=== PATIENT | female | born 1970 | race Caucasian/White ===

== ENCOUNTER 2017-10-08 10:20 | Emergency (ER) | payer BC ==
[2017-10-08 11:08] LABS: Absolute Lymphocytes (CBC) 1.7 K/uL (0.7-4.9); Absolute Monocytes 0.7 K/uL (0.1-1.3); Absolute Neutrophil 2.7 K/uL (1.8-8.0); Basophils % 0.8 % (0-1.3); Eosinophils % 2.1 % (0-4.4); Hematocrit 35.4 % (36.0-45.0); Lymphocytes % 31.9 % (15.3-44.8); MPV 7.7 fL (7.6-11.3); Monocytes % 13.6 % (3.3-12.3); RBC Red Blood Cell Count 4.11 M/uL (3.86-4.86)
[2017-10-08 11:18] LABS: Bicarbonate 27 mEq/L (21-31); Glucose Level 94 mg/dL (65-120); Potassium 3.6 mEq/L (3.6-5.0); Sodium Level 136 mEq/L (135-145)
[2017-10-08 11:19] LABS: Protime INR 0.97
[2017-10-08 11:24] LABS: ALT/SGPT 15 IU/L (10-60); AST/SGOT 18 IU/L (10-42); Albumin 3.5 g/dL (3.2-5.5); Alkaline Phosphatase 65 IU/L (42-121); BUN Blood Urea Nitrogen 20 mg/dL (6-20); Bilirubin Direct < 0.1 mg/dL (0-0.2); Bilirubin Total 0.3 mg/dL (0.3-1.2); Glomerular Filtration Rate > 90 mL/min (=/>90); Magnesium 1.8 mg/dL (1.8-2.5); Protein, Total 6.8 g/dL (6.0-8.3)
--- NOTE | 2017-10-08 11:25 | RAD REPORT ---
EXAM DESCRIPTION: Rachell Single View10/08/2017 11:18 am CLINICAL HISTORY: Chest pain COMPARISON: November 2016 FINDINGS: The lungs appear clear of acute infiltrate. The heart is normal size IMPRESSION: No acute abnormalities displayed
--- NOTE | 2017-10-08 12:42 | EKG ---
Test Date: 2017-10-08 Test Time: 10:35:57 Senior Marketing Data Analyst: ALEJANDRO MEASUREMENT RESULTS: Intervals: Rate: 92 NH: 128 QRSD: 76 QT: 366 QTc: 452 [place]: P: 49 NH: 128 QRS: 54 T: 47 INTERPRETIVE STATEMENTS: Normal sinus rhythm Normal ECG Compared to ECG 12/13/2016 13:37:56 No significant changes Electronically Signed On 10-08-17 12:42:00 CDT by Asher Slaughter
[2017-10-08 14:11] LABS: Urine Blood 2+ (NEG); Urine Glucose NEGATIVE (NEG); Urine Protein NEGATIVE (NEG); Urine pH 6.5 (5.0-7.0)
--- NOTE | 2017-10-08 15:19 | ER ---
Nurse's Notes [facility] Name: Mary Carmen Dodd Age: 46 yrs Sex: Female : 1970 Arrival Date: 10/08/2017 Time: 10:23 Bed 15 Private MD: Diagnosis: Chest pain, unspecified Presentation: 10/08 10:30 Presenting complaint: Patient states: chest pain since yesterday. Transition of care: tl3 patient was not received from another setting of care. Onset of symptoms. 10:30 Method Of Arrival: Ambulatory tl3 10:30 Acuity: DANIEL 3 tl3 Triage Assessment: 10:32 General: Appears distressed, uncomfortable, well groomed, well developed, well tl3 nourished, Behavior is calm, cooperative, appropriate for age. 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 Patient has never been vaccinated. - Social history:: Smoking status: Patient/guardian denies using tobacco. Screenin:51 Abuse screen: Denies threats or abuse. Denies injuries from another. Nutritional jl7 screening: No deficits noted. Tuberculosis screening: No symptoms or risk factors identified. Fall Risk IV access (20 points). Total Cunningham Fall Scale indicates No Risk (0-24 pts). Assessment: 10:51 General: Appears in no apparent distress. uncomfortable, Behavior is calm, cooperative, jtb appropriate for age. Pain: Complains of pain in mid-sternal area and left lateral posterior chest and back of the neck Pain does not radiate. Pain currently is 6 out of 10 on a pain scale. at worst was 6 out of 10 on a pain scale. Quality of pain is described as pressure, Pain began 1 day ago. Is intermittent. Neuro: Level of Consciousness is awake, alert, obeys commands, Oriented to person, place, time, situation. Cardiovascular: Heart tones S1 S2 present Patient's skin is warm and dry. Respiratory: Airway is patent Respiratory effort is even, unlabored, Respiratory pattern is regular, symmetrical, Breath sounds are clear bilaterally. GI: No signs and/or symptoms were reported involving the gastrointestinal system. : No signs and/or symptoms were reported regarding the genitourinary system. EENT: No signs and/or symptoms were reported regarding the EENT system. Derm: Skin is intact, Skin is pink, warm \\T\\ dry. Musculoskeletal: No signs and/or symptoms reported regarding the musculoskeletal system. 11:39 Reassessment: Patient and/or family updated on plan of care and expected duration. Pain jtb level reassessed. Patient is alert, oriented x 3, equal unlabored respirations, skin warm/dry/pink. Pt states "The pain just come and goes. Right now I am not feeling any pain." Patient denies pain at this time. Patient states feeling better. 12:44 Reassessment: No changes from previously documented assessment. Patient and/or family jtb updated on plan of care and expected duration. Pain level reassessed. Patient is alert, oriented x 3, equal unlabored respirations, skin warm/dry/pink. 13:48 Reassessment: No changes from previously documented assessment. Patient and/or family jtb updated on plan of care and expected duration. Pain level reassessed. Patient is alert, oriented x 3, equal unlabored respirations, skin warm/dry/pink. 14:40 Reassessment: No changes from previously documented assessment. Patient and/or family jtb updated on plan of care and expected duration. Pain level reassessed. Patient is alert, oriented x 3, equal unlabored respirations, skin warm/dry/pink. 15:43 Reassessment: Patient and/or family updated on plan of care and expected duration. Pain jtb level reassessed. Patient is alert, oriented x 3, equal unlabored respirations, skin warm/dry/pink. Patient states feeling better. Reassessment:. Vital Signs: 10:29 BP 125 / 95; Pulse 80; Resp 18; Temp 98.4(O); Pulse Ox 100% on R/A; Weight 77.11 kg; tl3 Height 5 ft. (152.40 cm); 11:41 BP 111 / 80; Pulse 81; Resp 16 S; Pulse Ox 97% on R/A; Pain 0/10; jtb 12:44 BP 114 / 76; Pulse 71; Resp 16 S; Pulse Ox 99% on R/A; Pain 0/10; jtb 13:45 BP 121 / 79; Pulse 74; Resp 16 S; Pulse Ox 99% on R/A; Pain 0/10; jl7 14:40 BP 108 / 77; Pulse 78; Resp 16 S; Pulse Ox 99% on R/A; jtb 15:40 BP 113 / 73; Pulse 75; Resp 16 S; Pulse Ox 100% on R/A; Pain 3/10; jtb 10:29 Body Mass Index 33.20 (77.11 kg, 152.40 cm) tl3 ED Course: 10:23 Patient arrived in ED. sb2 10:31 Triage completed. tl3 10:34 Sohail Thorpe PA is PHCP. jr8 10:34 Lorna Agarwal MD is Attending Physician. jr8 10:50 Adela Le, VICTORINO is Primary Nurse. jl7 10:51 Patient has correct armband on for positive identification. Placed in gown. Bed in low jl7 position. Call light in reach. Side rails up X 1. site monitor on. Pulse ox on. NIBP on. Warm blanket given. 10:51 Initial lab(s) drawn, by ED staff, sent to lab. Inserted saline lock: 22 gauge in right jl7 antecubital area, using aseptic technique. Blood collected. Inserted by DELFINO Gonzalez Tech. Patient maintains SpO2 saturation greater than 95% on room air. 10:52 Arm band placed on right wrist. jl7 11:15 X-ray completed. Portable x-ray completed in exam room. Patient tolerated procedure ml well. 15:56 No provider procedures requiring assistance completed. IV discontinued, intact, jtb bleeding controlled. Administered Medications: No medications were administered Outcome: 15:18 Discharge ordered by . jr8 15:56 Discharged to home ambulatory. jtb 15:56 Condition: stable 15:56 Discharge instructions given to patient, Instructed on discharge instructions, follow up and referral plans. no drinking with medication, medication usage, Demonstrated understanding of instructions, follow-up care, medications, Prescriptions given X 2. 15:56 Attestation : I agree with everything documented by Enrique Anderson, Student Nurse. jl7 15:57 Patient left the ED. jtb Signatures: Pinky Meier ml Sohail Thorpe PA PA jr8 Adela Le, RN RN jl7 Mandy Gutierrez sb2 Karen Vergara, VICTORINO RN tl3 Enrique Anderson jtb
--- NOTE | 2017-10-08 15:19 | EDPHYS ---
Physician Documentation [facility] Name: Mary Carmen Dodd Age: 46 yrs Sex: Female : 1970 Arrival Date: 10/08/2017 Time: 10:23 Bed 15 Private MD: ED Physician Lorna Agarwal HPI: 10/08 11:28 This 46 yrs old Female presents to ER via Ambulatory with complaints of Chest jr8 Pain, Chest Tightness, Arm Pain, Neck Pain, >24Hrs Old. 11:28 The patient or guardian reports chest pain that is located primarily in the anterior jr8 chest wall, left. Onset: acutely, yesterday, and became worse today, and became persistent today. The pain radiates to the left arm. Associated signs and symptoms: The patient has no apparent associated signs or symptoms. The chest pain is described as a pressure. Duration: The patient or guardian reports multiple episodes, that are intermittent. Modifying factors: The symptoms are alleviated by nothing. the symptoms are aggravated by nothing. Severity of pain: At its worst the pain was moderate in the emergency department the pain is unchanged. The patient has not experienced similar symptoms in the past. The patient has not recently seen a physician. 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 Patient has never been vaccinated. - Social history:: Smoking status: Patient/guardian denies using tobacco. ROS: 11:28 Eyes: Negative for injury, pain, redness, and discharge, ENT: Negative for injury, jr8 pain, and discharge, Neck: Negative for injury, pain, and swelling, Abdomen/GI: Negative for abdominal pain, nausea, vomiting, diarrhea, and constipation, Back: Negative for injury and pain, MS/Extremity: Negative for injury and deformity, Skin: Negative for injury, rash, and discoloration, Neuro: Negative for headache, weakness, numbness, tingling, and seizure. 11:28 Cardiovascular: Positive for chest pain, Negative for edema, orthopnea, palpitations, paroxysmal nocturnal dyspnea. 11:28 Respiratory: Positive for dyspnea on exertion, shortness of breath, Negative for cough, hemoptysis, orthopnea, pleurisy, sputum production, wheezing. Exam: 11:28 Eyes: Pupils equal round and reactive to light, extra-ocular motions intact. Lids and jr8 lashes normal. Conjunctiva and sclera are non-icteric and not injected. Cornea within normal limits. Periorbital areas with no swelling, redness, or edema. ENT: Nares patent. No nasal discharge, no septal abnormalities noted. Tympanic membranes are normal and external auditory canals are clear. Oropharynx with no redness, swelling, or masses, exudates, or evidence of obstruction, uvula midline. Mucous membranes moist. Neck: Trachea midline, no thyromegaly or masses palpated, and no cervical lymphadenopathy. Supple, full range of motion without nuchal rigidity, or vertebral point tenderness. No Meningismus. Cardiovascular: Regular rate and rhythm with a normal S1 and S2. No gallops, murmurs, or rubs. Normal PMI, no JVD. No pulse deficits. Respiratory: Lungs have equal breath sounds bilaterally, clear to auscultation and percussion. No rales, rhonchi or wheezes noted. No increased work of breathing, no retractions or nasal flaring. Abdomen/GI: Soft, non-tender, with normal bowel sounds. No distension or tympany. No guarding or rebound. No evidence of tenderness throughout. Back: No spinal tenderness. No costovertebral tenderness. Full range of motion. Skin: Warm, dry with normal turgor. Normal color with no rashes, no lesions, and no evidence of cellulitis. MS/ Extremity: Pulses equal, no cyanosis. Neurovascular intact. Full, normal range of motion. Neuro: Awake and alert, GCS 15, oriented to person, place, time, and situation. Cranial nerves II-XII grossly intact. Motor strength 5/5 in all extremities. Sensory grossly intact. Cerebellar exam normal. Normal gait. Vital Signs: 10:29 BP 125 / 95; Pulse 80; Resp 18; Temp 98.4(O); Pulse Ox 100% on R/A; Weight 77.11 kg; tl3 Height 5 ft. (152.40 cm); 11:41 BP 111 / 80; Pulse 81; Resp 16 S; Pulse Ox 97% on R/A; Pain 0/10; jtb 12:44 BP 114 / 76; Pulse 71; Resp 16 S; Pulse Ox 99% on R/A; Pain 0/10; jtb 13:45 BP 121 / 79; Pulse 74; Resp 16 S; Pulse Ox 99% on R/A; Pain 0/10; jl7 14:40 BP 108 / 77; Pulse 78; Resp 16 S; Pulse Ox 99% on R/A; jtb 15:40 BP 113 / 73; Pulse 75; Resp 16 S; Pulse Ox 100% on R/A; Pain 3/10; jtb 10:29 Body Mass Index 33.20 (77.11 kg, 152.40 cm) tl3 MDM: 10:34 Patient medically screened. jr8 15:17 Data reviewed: vital signs, nurses notes, lab test result(s), EKG, radiologic studies, [facility] plain films, and as a result, I will discharge patient. Data interpreted: Pulse oximetry: on room air is 99 %. Interpretation: normal. 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 10/08 10:53 Order name: Basic Metabolic Panel [facility] 10/08 10:53 Order name: BNP [facility] 10/08 10:53 Order name: CBC with Diff [facility] 10/08 10:53 Order name: LFT's [facility] 10/08 10:53 Order name: Magnesium [facility] 10/08 10:53 Order name: PT-INR [facility] 10/08 10:53 Order name: Troponin (emerg Dept Use Only) [facility] 10/08 11:05 Order name: D-Dimer [facility] 10/08 11:12 Order name: CBC with Automated Diff; Complete Time: 11:27 EDMS 10/08 11:18 Order name: Basic Metabolic Panel; Complete Time: 11:27 EDMS 10/08 11:22 Order name: Protime (+INR); Complete Time: 11:27 EDMS 10/08 11:22 Order name: D-Dimer; Complete Time: 11:27 EDMS 10/08 11:24 Order name: Liver (Hepatic) Function; Complete Time: 11:27 [facility] 10/08 11:24 Order name: Magnesium; Complete Time: 11:27 [facility] 10/08 10:53 Order name: XRAY Chest (1 view) [facility] 10/08 10:53 Order name: EKG; Complete Time: 10:54 [facility] 10/08 10:53 Order name: Cardiac monitoring; Complete Time: 10:56 [facility] 10/08 10:53 Order name: EKG - Nurse/Tech; Complete Time: 11:32 [facility] 10/08 10:53 Order name: IV Saline Lock; Complete Time: 10:56 [facility] 10/08 10:53 Order name: Labs collected and sent; Complete Time: 11:10 [facility] 10/08 10:53 Order name: O2 Per Protocol; Complete Time: 10:56 [facility] 10/08 10:53 Order name: O2 Sat Monitoring; Complete Time: 10:56 [facility] 10/08 10:53 Order name: Urine Dipstick-Ancillary (obtain specimen); Complete Time: 13:37 [facility] 10/08 11:25 Order name: Troponin (Emerg Dept Use Only); Complete Time: 11:27 [facility] 10/08 11:26 Order name: RAD; Complete Time: 11:27 [facility] 10/08 11:28 Order name: BNP B-Type Natriuretic Peptide; Complete Time: 11:35 [facility] 10/08 13:12 Order name: Troponin (emerg Dept Use Only) [facility] 10/08 14:12 Order name: Urine Dipstick-Ancillary; Complete Time: 14:19 [facility] 10/08 14:38 Order name: Troponin (Emerg Dept Use Only); Complete Time: 15:18 EDMS Administered Medications: No medications were administered Disposition: 10/09 07:12 Co-signature as Attending Physician, Lorna Agarwal MD. ma2 Disposition: 10/08/17 15:18 Discharged to Home. Impression: Chest pain, unspecified. - Condition is Stable. - Discharge Instructions: Nonspecific Chest Pain, Aspirin and Your Heart. - Prescriptions for Ibuprofen 800 mg Oral Tablet - take 1 tablet by ORAL route every 12 hours As needed take with food; 20 tablet. Cyclobenzaprine 10 mg Oral Tablet - take 1 tablet by ORAL route every 8 hours As needed; 30 tablet. - Medication Reconciliation Form, Thank You Letter, Antibiotic Education, Prescription Opioid Use, Work release form form. - Follow up: Private Physician; When: 5 - 6 days; Reason: Recheck today's complaints, Continuance of care, Re-evaluation by your physician. - Problem is new. - Symptoms have improved. Signatures: Dispatcher [employer] EDSohail Blancas PA PA jr8 Lorna Agarwal MD MD ma2 Karen Vergara RN RN tl3 Enrique Anderson j
[2017-10-08 16:03] VITALS: TEMP 98.4
[2017-10-08 16:09] VITALS: BP 113/73; O2SAT 100
== END 2017-10-08 15:57 | disposition home or self-care (01) ==
LOC: ER 10:20
DX: R07.9 Chest pain, unspecified (principal); Z91.018 Allergy to other foods
CPT/HCPCS: 36415; 71045; 80048; 80076; 81003; 83735; 83880; 84484; 85025; 85379; 85610; 93005; 99285

== ENCOUNTER 2018-04-14 13:53 | Emergency (ER) | payer BC ==
[2018-04-14] MEDS ORDERED: ONDANSETRON 4 MG/2 ML VIAL ONE (15:30)
[2018-04-14] MEDS ORDERED: FAMOTIDINE 20 MG/2 ML VIAL IV ONE (15:30)
[2018-04-14 15:32] LABS: Urine Blood 3+ (NEG); Urine Glucose NEGATIVE (NEG); Urine Protein NEGATIVE (NEG); Urine Specific Gravity 1.025 (1.005-1.030)
[2018-04-14 15:42] LABS: Absolute Lymphocytes (CBC) 1.6 K/uL (0.7-4.9); Absolute Monocytes 0.8 K/uL (0.1-1.3); Absolute Neutrophil 4.3 K/uL (1.8-8.0); Basophils % 0.4 % (0-1.3); Eosinophils % 1.2 % (0-4.4); Hematocrit 35.9 % (36.0-45.0); Lymphocytes % 24.2 % (15.3-44.8); MCH 26.5 pg (27.0-35.0); MCV 80.6 fL (80-100); MPV 8.2 fL (7.6-11.3); Monocytes % 11.4 % (3.3-12.3); RBC Red Blood Cell Count 4.46 M/uL (3.86-4.86)
[2018-04-14 16:34] LABS: ALT/SGPT 26 U/L (12-78); AST/SGOT 22 U/L (15-37); Albumin 3.7 g/dL (3.4-5.0); Alkaline Phosphatase 91 U/L (45-117); BUN Blood Urea Nitrogen 21 mg/dL (7-18); Bicarbonate 29 mmol/L (21-32); Bilirubin Direct < 0.1 mg/dL (0-0.2); Bilirubin Total 0.3 mg/dL (0.2-1.0); Glucose Level 95 mg/dL (74-106); Lipase 176 U/L (73-393); Potassium 3.7 mmol/L (3.5-5.1); Protein, Total 7.9 g/dL (6.4-8.2); Sodium Level 138 mmol/L (136-145)
[2018-04-14] MEDS ORDERED: MAGNE/ALUM HYDROXD 30 ML UCUP ONE (16:57)
[2018-04-14] MEDS ORDERED: NA CHLORIDE 0.9% 1,000 ML ONE (16:57)
[2018-04-14] MEDS ORDERED: LIDOCAINE VISCOUS 2% SOLN 15 ML UDC ONE (16:57)
--- NOTE | 2018-04-14 17:13 | RAD REPORT ---
EXAM DESCRIPTION: CTAbdomen Pelvis W Contrast - 04/14/2018 4:59 pm CLINICAL HISTORY: Abdominal pain. upper abdomen pain COMPARISON: Head C Spine Mpr Wo Con dated 12/16/2017CT ABD PELVIS W CONTRAST dated 08/02/2015 TECHNIQUE: Biphasic CT imaging of the abdomen and pelvis was performed with 100 ml non-ionic IV cont rast. All CT scans are performed using dose optimization technique as appropriate and may include automated exposure control or mA/KV adjustment according to patient size. FINDINGS: The lung bases are clear. The liver contains a small low-density lesion in the right lobe superiorly measuring 15 mm, nonspecif ic but likely benign. It does appear somewhat larger than on the 2016 comparative study. The spleen, pancreas, adrenal glands and kidneys are within normal limits. Cholecystectomy clips are present. No bowel obstruction, free air, free fluid or abscess. Small fat containing umbilical hernia. Appende ctomy. No evidence of significant lymphadenopathy. No suspicious bony findings. IMPRESSION: No acute intra-abdominal or pelvic finding. 15 mm low-density lesion in the right lobe of the liver is favored to be benign but does show mild in terval growth since the 2016 comparative study. Non-emergent MRI liver protocol followup is recommend ed for further assessment.
--- NOTE | 2018-04-14 17:36 | EDPHYS ---
Physician Documentation [facility] Name: Mary Carmen Dodd Age: 47 yrs Sex: Female : 1970 Arrival Date: 04/14/2018 Time: 13:56 Bed 26 Private MD: Hal Edmonds ED Physician Ed Guerra HPI: 04/14 15:21 This 47 yrs old Female presents to ER via Ambulatory with complaints of cp Abdominal Pain, Nausea. 15:21 The patient presents with abdominal pain in the upper abdomen. Onset: The cp symptoms/episode began/occurred 1 month(s) ago, and became worse today. The symptoms do not radiate. Associated signs and symptoms: Pertinent positives: diarrhea, nausea, Pertinent negatives: anorexia, chest pain, constipation, fever, vomiting. 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 - Social history:: Smoking status: Patient/guardian denies using tobacco. - Ebola Screening: : No symptoms or risks identified at this time. ROS: 15:25 Constitutional: Negative for body aches, chills, fever, poor PO intake, weight loss. cp 15:25 Eyes: Negative for injury, pain, redness, and discharge. cp 15:25 ENT: Negative for drainage from ear(s), ear pain, sore throat, difficulty swallowing, difficulty handling secretions. 15:25 Cardiovascular: Negative for chest pain, palpitations. 15:25 Respiratory: Negative for cough, shortness of breath, wheezing. 15:25 Abdomen/GI: Positive for abdominal pain, nausea, diarrhea, Negative for vomiting, constipation, anorexia, dysphagia, black/tarry stool, rectal bleeding. 15:25 Back: Negative for pain at rest, pain with movement, radiated pain. 15:25 : Negative for urinary symptoms. 15:25 Neuro: Negative for altered mental status, headache, weakness. 15:25 All other systems are negative. Exam: 15:30 Constitutional: The patient appears in no acute distress, alert, awake, cp non-diaphoretic, non-toxic, well developed, well nourished. 15:30 Head/Face: Normocephalic, atraumatic. cp 15:30 Eyes: Periorbital structures: appear normal, Conjunctiva: normal, no exudate, no injection, Sclera: no appreciated abnormality, Lids and lashes: appear normal, bilaterally. 15:30 ENT: External ear(s): are unremarkable, Nose: is normal, Mouth: is normal, Posterior pharynx: is normal, airway is patent, no erythema, no exudate. 15:30 Chest/axilla: Inspection: normal, Palpation: is normal, no crepitus, no tenderness. 15:30 Cardiovascular: Rate: normal, Rhythm: regular, Heart sounds: murmur, not appreciated, Edema: JVD: is not appreciated. 15:30 Respiratory: the patient does not display signs of respiratory distress, Respirations: normal, no use of accessory muscles, no retractions, no splinting, no tachypnea, labored breathing, is not present, Breath sounds: are clear throughout, no decreased breath sounds, no stridor, no wheezing. 15:30 Abdomen/GI: Inspection: abdomen appears normal, Bowel sounds: active, all quadrants, Palpation: soft, in all quadrants, mild abdominal tenderness, in the right upper quadrant and left upper quadrant, moderate abdominal tenderness, in the epigastric area, rebound tenderness, is not appreciated, involuntary guarding, is not appreciated. 15:30 Back: pain, is absent, ROM is normal. 15:30 Skin: cellulitis, is not appreciated, no rash present. Vital Signs: 13:58 BP 127 / 77; Pulse 88; Resp 16 S; Temp 98.1(TE); Pulse Ox 98% on R/A; Weight 77.56 kg aa5 (R); Height 4 ft. 11 in. (149.86 cm) (R); Pain 7/10; 14:58 BP 116 / 66; Pulse 80; Resp 16; Pulse Ox 97% on R/A; mt 16:54 BP 111 / 81; Pulse 76; Resp 16; Pulse Ox 98% on R/A; mt 17:22 BP 119 / 87; Pulse 72; Resp 18; Pulse Ox 95% on R/A; mg2 13:58 Body Mass Index 34.54 (77.56 kg, 149.86 cm) aa5 MDM: 15:08 Patient medically screened. cp 15:30 Differential diagnosis: bowel obstruction, pancreatitis, Peptic Ulcer Disease, Perf. cp Duodenal Ulcer, Perf. Gastric Ulcer, Pyelonephritis, Ureterolithiasis, urinary tract infection, gastritis, choledocholithiasis. 17:33 Data reviewed: vital signs, nurses notes, lab test result(s), radiologic studies, CT cp scan. 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 Special discussion: Based on the patient's Hx, exam, and Dx evaluation, there is no indication for emergent surgery or inpatient Tx. It is understood by the patient/guardian that if the Sx's persist or worsen they need to return immediately for re-evaluation. 04/14 15:13 Order name: Urine Dipstick--Ancillary (enter results); Complete Time: 16:45 04/14 16:45 Interpretation: Normal except: UBLD 3+. 04/14 15:13 Order name: Urine --Ancillary (enter results); Complete Time: 16:45 04/14 15:20 Order name: Basic Metabolic Panel; Complete Time: 16:45 04/14 16:45 Interpretation: Normal except: BUN 21; GFR 59. 04/14 15:20 Order name: CBC with Diff; Complete Time: 16:45 04/14 16:46 Interpretation: Normal except: HGB 11.8; HCT 35.9; MCV 80.6; MCH 26.5; RDW 16.1. 04/14 15:20 Order name: Creatinine for Radiology; Complete Time: 16:45 04/14 15:20 Order name: Hepatic Function; Complete Time: 16:45 04/14 17:49 Interpretation: Normal except: GLOB 4.2; A/G 0.9. 04/14 15:20 Order name: Lipase; Complete Time: 16:45 04/14 16:46 Interpretation: Within normal limits: LIP 176. 04/14 15:20 Order name: IV Saline Lock; Complete Time: 15:23 04/14 15:20 Order name: Labs collected and sent; Complete Time: 15:23 04/14 15:20 Order name: CT Abd/Pelvis - W/Contrast: no oral contrast; Complete Time: 17:23 04/14 17:24 Interpretation: Report reviewed. 04/14 17:24 Order name: PO challenge; Complete Time: 17:36 cp Administered Medications: 15:31 Drug: Pepcid 20 mg Route: IVP; Site: left forearm; mg2 17:08 Follow up: Response: No adverse reaction mg2 15:31 Drug: Zofran 4 mg Route: IVP; Site: left forearm; mg2 17:08 Follow up: Response: No adverse reaction; Marked relief of symptoms mg2 17:08 Drug: NS 0.9% 1000 ml Route: IV; Rate: 1 bolus; Site: left forearm; mg2 18:04 Follow up: Response: No adverse reaction; IV Status: Completed infusion mg2 17:09 Drug: GI Cocktail without - (Maalox Suspension 30 ml, Lidocaine Liquid 2 % 15 mg2 ml) Route: PO; 18:04 Follow up: Response: No adverse reaction; Marked relief of symptoms mg2 Disposition: 18:59 Co-signature as Attending Physician, Ed Guerra MD I agree with the assessment and kdr plan of care. Disposition: 04/14/18 17:35 Discharged to Home. Impression: Upper abdominal pain, unspecified. - Condition is Stable. - Discharge Instructions: Abdominal Pain, Adult. - Prescriptions for Protonix 40 mg Oral Tablet - take 1 tablet by ORAL route once daily; 30 tablet. Zofran 4 mg Oral Tablet - take 1 tablet by ORAL route every 12 hours As needed; 20 tablet. - Medication Reconciliation Form, Thank You Letter, Antibiotic Education, Prescription Opioid Use form. - Follow up: Cal Estrada MD; When: 2 - 3 days; Reason: Recheck today's complaints. - Problem is new. - Symptoms have improved. Signatures: Dispatcher [employer] EDEd García MD MD [facility] Elizabeth Burks RN RN aa5 Rah Johnson PA PA Brant Brenner RN RN mg2 Corrections: (The following items were deleted from the chart) 18:06 17:35 04/14/2018 17:35 Discharged to Home. Impression: Upper abdominal pain, mg2 unspecified. Condition is Stable. Forms are Medication Reconciliation Form, Thank You Letter, Antibiotic Education, Prescription Opioid Use. Follow up: Cal Estrada; When: 2 - 3 days; Reason: Recheck today's complaints. Problem is new. Symptoms have improved. cp
--- NOTE | 2018-04-14 17:36 | ER ---
Nurse's Notes [facility] Name: Mary Carmen Dodd Age: 47 yrs Sex: Female : 1970 Arrival Date: 04/14/2018 Time: 13:56 Bed 26 Private MD: Hal Edmonds Diagnosis: Upper abdominal pain, unspecified Presentation: 04/14 13:57 Presenting complaint: Patient states: upped abd pain and diarrhea x 1 month ago. Pt aa5 also reports nausea, denies vomiting. Pt states "the pain is worse today". Transition of care: patient was not received from another setting of care. Onset of symptoms was February 2018. Risk Assessment: Do you want to hurt yourself or someone else? Patient reports no desire to harm self or others. Initial Sepsis Screen: Does the patient meet any 2 criteria? No. Patient's initial sepsis screen is negative. Does the patient have a suspected source of infection? No. Patient's initial sepsis screen is negative. Care prior to arrival: None. 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 - Social history:: Smoking status: Patient/guardian denies using tobacco. - Ebola Screening: : No symptoms or risks identified at this time. Screenin:34 Abuse screen: Denies threats or abuse. Denies injuries from another. Nutritional mg2 screening: No deficits noted. Tuberculosis screening: No symptoms or risk factors identified. Fall Risk IV access (20 points). Assessment: 15:32 General: Appears in no apparent distress. comfortable, Behavior is calm, cooperative. mg2 Pain: Complains of pain in upper abdomen Pain does not radiate. Pain currently is 7 out of 10 on a pain scale. Quality of pain is described as aching, Pain began gradually, 1 month already but worsen today Is intermittent, Alleviated by rest, relaxation. Neuro: Level of Consciousness is awake, alert, obeys commands, Oriented to person, place, time, situation. Cardiovascular: Capillary refill < 3 seconds Patient's skin is warm and dry. Respiratory: Airway is patent Respiratory effort is even, unlabored, Respiratory pattern is regular, symmetrical. GI: Bowel sounds present X 4 quads. Abd is soft and non tender X 4 quads. : No signs and/or symptoms were reported regarding the genitourinary system. EENT: No signs and/or symptoms were reported regarding the EENT system. Derm: Skin is intact, Skin is pink, warm \\T\\ dry. normal. Musculoskeletal: No signs and/or symptoms reported regarding the musculoskeletal system. 16:54 Reassessment: patient in ct scan. mg2 17:22 Reassessment: Patient appears in no apparent distress at this time. Patient and/or mg2 family updated on plan of care and expected duration. Pain level reassessed. Patient is alert, oriented x 3, equal unlabored respirations, skin warm/dry/pink. Vital Signs: 13:58 BP 127 / 77; Pulse 88; Resp 16 S; Temp 98.1(TE); Pulse Ox 98% on R/A; Weight 77.56 kg aa5 (R); Height 4 ft. 11 in. (149.86 cm) (R); Pain 7/10; 14:58 BP 116 / 66; Pulse 80; Resp 16; Pulse Ox 97% on R/A; mt 16:54 BP 111 / 81; Pulse 76; Resp 16; Pulse Ox 98% on R/A; mt 17:22 BP 119 / 87; Pulse 72; Resp 18; Pulse Ox 95% on R/A; mg2 13:58 Body Mass Index 34.54 (77.56 kg, 149.86 cm) aa5 ED Course: 13:56 Patient arrived in ED. mr 13:57 Hal Edmonds MD is Private Physician. mr 13:58 Triage completed. aa5 13:58 Arm band placed on. aa5 14:52 Karen Vergara, RN is Primary Nurse. tl3 14:52 Primary Nurse role handed off by Karen Vergara, VICTORINO mg2 14:52 Brant Navarro, VICTORINO is Primary Nurse. mg2 15:07 Rah Johnson PA is PHCP. cp 15:07 Ed Guerra MD is Attending Physician. cp 15:34 Patient has correct armband on for positive identification. Bed in low position. Call mg2 light in reach. Side rails up X 1. Pulse ox on. NIBP on. 15:34 No provider procedures requiring assistance completed. Inserted saline lock: 22 gauge mg2 in left forearm, using aseptic technique. Blood collected. 17:00 CT Abd/Pelvis - W/Contrast: no oral contrast In Process Unspecified. EDMS 17:34 Cal Estrada MD is Referral Physician. cp 18:04 IV discontinued, intact, bleeding controlled, No redness/swelling at site. Pressure mg2 dressing applied. Administered Medications: 15:31 Drug: Pepcid 20 mg Route: IVP; Site: left forearm; mg2 17:08 Follow up: Response: No adverse reaction mg2 15:31 Drug: Zofran 4 mg Route: IVP; Site: left forearm; mg2 17:08 Follow up: Response: No adverse reaction; Marked relief of symptoms mg2 17:08 Drug: NS 0.9% 1000 ml Route: IV; Rate: 1 bolus; Site: left forearm; mg2 18:04 Follow up: Response: No adverse reaction; IV Status: Completed infusion mg2 17:09 Drug: GI Cocktail without - (Maalox Suspension 30 ml, Lidocaine Liquid 2 % 15 mg2 ml) Route: PO; 18:04 Follow up: Response: No adverse reaction; Marked relief of symptoms mg2 Outcome: 17:35 Discharge ordered by MD. cp 18:05 Discharged to home ambulatory, with family. mg2 18:05 Condition: stable 18:05 Discharge instructions given to patient, family, Instructed on discharge instructions, follow up and referral plans. medication usage, Demonstrated understanding of instructions, follow-up care, medications, Prescriptions given X 2. 18:06 Patient left the ED. mg2 Signatures: Dispatcher [employer] EDNH Yvonne Philip Audri, RN RN aa5 Rah Johnson PA PA cp Thompson, Moriah mt Lowrey, Tammy, RN RN tl3 Brant Navarro RN RN mg2
[2018-04-14 18:56] VITALS: TEMP 98.1
[2018-04-14 19:00] VITALS: BP 119/87; O2SAT 95
== END 2018-04-14 18:06 | disposition home or self-care (01) ==
LOC: ER 13:53
DX: R10.10 Upper abdominal pain, unspecified (principal); Z91.018 Allergy to other foods
CPT/HCPCS: 36415; 74177; 80048; 80076; 81003; 81025; 83690; 85025; 96361; 96374; 96375; 99284; J2405; J7030; Q9967

== ENCOUNTER 2018-09-24 18:46 | Emergency (ER) | payer BC ==
[2018-09-24 20:44] LABS: Absolute Lymphocytes (CBC) 2.5 K/uL (0.7-4.9); Absolute Neutrophil 4.2 K/uL (1.8-8.0); Basophils % 0.6 % (0-1.3); Eosinophils % 1.8 % (0-4.4); Hematocrit 35.6 % (36.0-45.0); Lymphocytes % 31.7 % (15.3-44.8); MPV 7.8 fL (7.6-11.3); RBC Red Blood Cell Count 4.34 M/uL (3.86-4.86)
[2018-09-24 21:01] LABS: Albumin 3.5 g/dL (3.4-5.0); Bilirubin Direct 0.1 mg/dL (0-0.2); Bilirubin Total 0.2 mg/dL (0.2-1.0); Potassium 4.3 mmol/L (3.5-5.1); Protein, Total 7.5 g/dL (6.4-8.2)
[2018-09-24 21:40] LABS: Urine Blood TRACE (NEG); Urine Glucose NEGATIVE (NEG); Urine Protein NEGATIVE (NEG); Urine Specific Gravity 1.015 (1.005-1.030); Urine pH 7.5 (5.0-7.0)
--- NOTE | 2018-09-24 22:38 | EDPHYS ---
Physician Documentation [facility] Name: Mary Carmen Dodd Age: 47 yrs Sex: Female : 1970 Arrival Date: 09/24/2018 Time: 18:49 Bed 18 Private MD: Hal Edmonds ED Physician Lorna Agarwal HPI: 09/24 21:53 This 47 yrs old Female presents to ER via Ambulatory with complaints of pm1 Rectal Bleeding. 21:53 The patient presents to the emergency department with bleeding from the rectum/anus, pm1 that is mild. Onset: The symptoms/episode began/occurred yesterday. Context: the patient has a known history of hemorrhoids. Modifying factors: The symptoms are alleviated by nothing, The symptoms are aggravated by bowel movement. Associate signs and symptoms: Pertinent positives: abdominal pain in the lateral aspects of upper abdomen, Pertinent negatives: constipation, diarrhea, dysuria, fever, vomiting. The patient has not recently seen a physician, the patient's primary care provider is Dr. Correia. Bright red bleeding with bowel movement for the past two days. Three total bowel movement with bleeding.. 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 - Social history:: Smoking status: Patient/guardian denies using tobacco. - Ebola Screening: : Patient negative for fever greater than or equal to 101.5 degrees Fahrenheit, and additional compatible Ebola Virus Disease symptoms Patient denies exposure to infectious person Patient denies travel to an Ebola-affected area in the 21 days before illness onset No symptoms or risks identified at this time. ROS: 21:53 Constitutional: Negative for fever, chills, and weight loss, Eyes: Negative for injury, pm1 pain, redness, and discharge, ENT: Negative for injury, pain, and discharge, Neck: Negative for injury, pain, and swelling, Cardiovascular: Negative for chest pain, palpitations, and edema, Respiratory: Negative for shortness of breath, cough, wheezing, and pleuritic chest pain. 21:53 Back: Negative for injury and pain, : Negative for injury, bleeding, discharge, and swelling, MS/Extremity: Negative for injury and deformity, Skin: Negative for injury, rash, and discoloration, Neuro: Negative for headache, weakness, numbness, tingling, and seizure. 21:53 Abdomen/GI: Positive for abdominal pain, rectal pain, rectal bleeding, Negative for nausea, vomiting, and diarrhea. Exam: 21:53 Constitutional: This is a well developed, well nourished patient who is awake, alert, pm1 and in no acute distress. Head/Face: Normocephalic, atraumatic. Eyes: Pupils equal round and reactive to light, extra-ocular motions intact. Lids and lashes normal. Conjunctiva and sclera are non-icteric and not injected. Cornea within normal limits. Periorbital areas with no swelling, redness, or edema. ENT: Nares patent. No nasal discharge, no septal abnormalities noted. Tympanic membranes are normal and external auditory canals are clear. Oropharynx with no redness, swelling, or masses, exudates, or evidence of obstruction, uvula midline. Mucous membranes moist. Neck: Trachea midline, no thyromegaly or masses palpated, and no cervical lymphadenopathy. Supple, full range of motion without nuchal rigidity, or vertebral point tenderness. No Meningismus. Chest/axilla: Normal chest wall appearance and motion. Nontender with no deformity. No lesions are appreciated. Cardiovascular: Regular rate and rhythm with a normal S1 and S2. No gallops, murmurs, or rubs. Normal PMI, no JVD. No pulse deficits. Respiratory: Lungs have equal breath sounds bilaterally, clear to auscultation and percussion. No rales, rhonchi or wheezes noted. No increased work of breathing, no retractions or nasal flaring. Abdomen/GI: Soft, non-tender, with normal bowel sounds. No distension or tympany. No guarding or rebound. No evidence of tenderness throughout. Back: No spinal tenderness. No costovertebral tenderness. Full range of motion. Skin: Warm, dry with normal turgor. Normal color with no rashes, no lesions, and no evidence of cellulitis. MS/ Extremity: Pulses equal, no cyanosis. Neurovascular intact. Full, normal range of motion. 21:53 Abdomen/GI: Rectal exam: rectal tone normal, hemorrhoid(s), external, with inflammation, with pain, without bleeding, without thrombosis, mass, is not appreciated, swelling, is not appreciated, tenderness, that is moderate, Angela flores, Patient with sample of solid brown color stool with small quantity of bright red streaks on stool. 21:53 Neuro: Orientation: is normal, Motor: is normal, moves all fours. Vital Signs: 19:12 Weight 74.84 kg; Height 4 ft. 11 in. (149.86 cm); bp 19:15 BP 107 / 55; Pulse 75; Resp 17; Pulse Ox 99% ; rr5 20:30 BP 118 / 74; Pulse 70; Resp 18; Temp 98.6; Pulse Ox 99% ; rr5 21:30 BP 115 / 76; Pulse 79; Resp 16; Pulse Ox 99% ; rr5 22:30 BP 116 / 70; Pulse 69; Resp 16; Pulse Ox 98% ; rr5 23:40 BP 121 / 70; Pulse 71; Resp 18; Pulse Ox 99% ; rr5 19:12 Body Mass Index 33.33 (74.84 kg, 149.86 cm) bp MDM: 19:05 Patient medically screened. pm1 21:57 Data reviewed: vital signs. Data interpreted: Pulse oximetry: on room air is 99 %. pm1 Interpretation: normal. 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 09/24 20:09 Order name: Basic Metabolic Panel; Complete Time: 21:01 pm1 09/24 20:09 Order name: CBC with Diff; Complete Time: 20:54 pm1 09/24 20:09 Order name: Creatinine for Radiology; Complete Time: 21:07 pm1 09/24 20:09 Order name: Hepatic Function; Complete Time: 21:01 pm1 09/24 20:09 Order name: Lipase; Complete Time: 21:01 pm1 09/24 21:36 Order name: Urine Dipstick--Ancillary (enter results); Complete Time: 21:41 ar5 09/24 20:09 Order name: IV Saline Lock; Complete Time: 20:37 pm1 09/24 20:09 Order name: Labs collected and sent; Complete Time: 20:37 pm1 09/24 20:09 Order name: CT Abd/Pelvis - W/Contrast: IV contrast only pm1 09/24 20:55 Order name: Urine Dipstick-Ancillary (obtain specimen); Complete Time: 21:23 pm1 09/24 20:55 Order name: Urine Test (obtain specimen); Complete Time: 21:23 pm1 09/24 21:36 Order name: Urine --Ancillary (enter results); Complete Time: 21:41 ar5 Administered Medications: 22:54 Drug: Flagyl 500 mg Volume: 100 ml; Route: IVPB; Rate: 200 ml/hr; Infused Over: 30 rr5 mins; Site: left forearm; 23:25 Follow up: Response: No adverse reaction; IV Status: Completed infusion; IV Intake: rr5 100ml 23:25 Drug: Ciprofloxacin 500 mg Route: PO; rr5 23:43 Follow up: Response: No adverse reaction rr5 Disposition: 09/24/18 22:37 Discharged to Home. Impression: Rectal bleeding, Hemorrhoids. - Condition is Stable. - Discharge Instructions: Rectal Bleeding. - Prescriptions for Flagyl 500 mg Oral Tablet - take 1 tablet by ORAL route every 8 hours for 10 days; 30 tablet. Cipro 500 mg Oral Tablet - take 1 tablet by ORAL route every 12 hours for 10 days; 20 tablet. - Medication Reconciliation Form, Thank You Letter, Antibiotic Education form. - Follow up: Emergency Department; When: As needed; Reason: Worsening of condition. Follow up: Private Physician; When: 2 - 3 days; Reason: Recheck today's complaints, Continuance of care, Re-evaluation by your physician. - Problem is new. - Symptoms have improved. Addendum: 09/26/2018 07:30 Co-signature as Attending Physician, Lorna Agarwal MD. m a2 Signatures: Dispatcher [employer] Yadiel Arciniega NP FAST BRIM POUNCER pm1 Jackson An, RN RN Lorna Hills MD MD ma2 Mateus Astudillo RN RN rr5 Corrections: (The following items were deleted from the chart) 09/24 23:43 22:37 09/24/2018 22:37 Discharged to Home. Impression: Rectal bleeding; Hemorrhoids. rr5 Condition is Stable. Forms are Medication Reconciliation Form, Thank You Letter, Antibiotic Education, Prescription Opioid Use. Follow up: Emergency Department; When: As needed; Reason: Worsening of condition. Follow up: Private Physician; When: 2 - 3 days; Reason: Recheck today's complaints, Continuance of care, Re-evaluation by your physician. Problem is new. Symptoms have improved. pm1
--- NOTE | 2018-09-24 22:38 | ER ---
Nurse's Notes [facility] Name: Mary Carmen Dodd Age: 47 yrs Sex: Female : 1970 Arrival Date: 09/24/2018 Time: 18:49 Bed 18 Private MD: Hal Edmonds Diagnosis: Rectal bleeding;Hemorrhoids Presentation: 09/24 19:11 Presenting complaint: Patient states: TWO INCIDENCE OF BRIGHT RED BLOOD PER RECTUM WITH bp BM. Transition of care: patient was not received from another setting of care. Onset of symptoms is unknown. Risk Assessment: Do you want to hurt yourself or someone else? Patient reports no desire to harm self or others. Initial Sepsis Screen: Does the patient meet any 2 criteria? No. Patient's initial sepsis screen is negative. Does the patient have a suspected source of infection? No. Patient's initial sepsis screen is negative. Care prior to arrival: None. 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 - Social history:: Smoking status: Patient/guardian denies using tobacco. - Ebola Screening: : Patient negative for fever greater than or equal to 101.5 degrees Fahrenheit, and additional compatible Ebola Virus Disease symptoms Patient denies exposure to infectious person Patient denies travel to an Ebola-affected area in the 21 days before illness onset No symptoms or risks identified at this time. Screenin:15 Abuse screen: Denies threats or abuse. Denies injuries from another. Nutritional rr5 screening: No deficits noted. Tuberculosis screening: No symptoms or risk factors identified. Fall Risk None identified. Total Cunningham Fall Scale indicates No Risk (0-24 pts). Assessment: 19:15 General: Appears in no apparent distress. uncomfortable, Behavior is calm, cooperative, rr5 appropriate for age. Pain: Complains of pain in abdomen Pain does not radiate. Pain currently is 4 out of 10 on a pain scale. Quality of pain is described as aching, Pain began gradually, Is intermittent. Neuro: Level of Consciousness is awake, alert, obeys commands, Oriented to person, place, time, situation, Appropriate for age. Cardiovascular: Capillary refill < 3 seconds Patient's skin is warm and dry. Respiratory: Airway is patent Respiratory effort is even, unlabored, Respiratory pattern is regular, symmetrical. GI: Abdomen is round Last BM was September 24, 2018. Reports rectal bleeding. 19:15 : No signs and/or symptoms were reported regarding the genitourinary system. EENT: No rr5 signs and/or symptoms were reported regarding the EENT system. Derm: Skin is intact, Skin temperature is warm. Musculoskeletal: Capillary refill < 3 seconds, Range of motion: intact in all extremities. 20:30 Reassessment: Patient appears in no apparent distress at this time. Patient is alert, rr5 oriented x 3, equal unlabored respirations, skin warm/dry/pink. no complaints made. 21:58 Reassessment: Patient appears in no apparent distress at this time. Patient is alert, rr5 oriented x 3, equal unlabored respirations, skin warm/dry/pink. awaiting for Ct result. Patient states symptoms have improved. 22:40 Reassessment: Patient appears in no apparent distress at this time. Patient is alert, rr5 oriented x 3, equal unlabored respirations, skin warm/dry/pink. Patient states feeling better. Patient states symptoms have improved. 23:31 Reassessment: Patient appears in no apparent distress at this time. Patient is alert, rr5 oriented x 3, equal unlabored respirations, skin warm/dry/pink. discharge instruction given and explained without complaints made. Vital Signs: 19:12 Weight 74.84 kg; Height 4 ft. 11 in. (149.86 cm); bp 19:15 BP 107 / 55; Pulse 75; Resp 17; Pulse Ox 99% ; rr5 20:30 BP 118 / 74; Pulse 70; Resp 18; Temp 98.6; Pulse Ox 99% ; rr5 21:30 BP 115 / 76; Pulse 79; Resp 16; Pulse Ox 99% ; rr5 22:30 BP 116 / 70; Pulse 69; Resp 16; Pulse Ox 98% ; rr5 23:40 BP 121 / 70; Pulse 71; Resp 18; Pulse Ox 99% ; rr5 19:12 Body Mass Index 33.33 (74.84 kg, 149.86 cm) bp ED Course: 18:49 Patient arrived in ED. mr 18:49 Hal Edmonds MD is Private Physician. mr 19:04 Yadiel Jj, GIO is PHCP. pm1 19:05 Lorna Agarwal MD is Attending Physician. pm1 19:12 Triage completed. bp 19:12 Mateus Astudillo RN is Primary Nurse. rr5 19:12 Arm band placed on. bp 19:15 Patient has correct armband on for positive identification. Placed in gown. Bed in low rr5 position. Call light in reach. Pulse ox on. NIBP on. 20:20 Served as a dot etcher during rectal exam. assisted by Angela technical operations manager. rr5 20:30 Inserted saline lock: 20 gauge in right forearm, using aseptic technique. ,using rr5 aseptic technique. unable to pull blood. 20:35 Inserted saline lock: 22 gauge in left forearm, using aseptic technique. Blood rr5 collected. 20:55 Radiology exam delayed due to test not completed at this time. kw1 22:05 CT Abd/Pelvis - W/Contrast: IV contrast only In Process Unspecified. EDMS 23:42 IV discontinued, intact, bleeding controlled, No redness/swelling at site. Pressure rr5 dressing applied. Administered Medications: 22:54 Drug: Flagyl 500 mg Volume: 100 ml; Route: IVPB; Rate: 200 ml/hr; Infused Over: 30 rr5 mins; Site: left forearm; 23:25 Follow up: Response: No adverse reaction; IV Status: Completed infusion; IV Intake: rr5 100ml 23:25 Drug: Ciprofloxacin 500 mg Route: PO; rr5 23:43 Follow up: Response: No adverse reaction rr5 Intake: 23:25 IV: 100ml; Total: 100ml. rr5 Outcome: 22:37 Discharge ordered by MD. pm1 23:42 Discharged to home ambulatory, with family. rr5 23:42 Condition: stable 23:42 Discharge instructions given to patient, family, Instructed on discharge instructions, follow up and referral plans. Demonstrated understanding of instructions, follow-up care, medications, Prescriptions given X 2. 23:43 Patient left the ED. rr5 Signatures: Dispatcher [employer] EDOK Cedrick Lin mr Yadiel Jj, FLOATLIGHT LOADING SUPERVISOR FLOATLIGHT LOADING SUPERVISOR pm1 Jackson An RN RN Griselda Linares kw1 Mateus Astudillo, RN RN rr5
[2018-09-24] MEDS ORDERED: CIPROFLOXACIN HCL 500 MG TAB ONE (22:57)
[2018-09-24] MEDS ORDERED: METRONIDAZOLE 500mg IVPB 500 MG/100 ML BAG IV ONE (22:57)
[2018-09-25 01:06] VITALS: O2SAT 99
[2018-09-25 01:08] VITALS: BP 118/74; TEMP 98.6
--- NOTE | 2018-09-26 11:31 | RAD REPORT ---
EXAM DESCRIPTION: CT - Abdomen Pelvis W Contrast - 09/24/2018 10:05 pm CLINICAL HISTORY: Rectal bleeding and abdominal pain. COMPARISON: None. TECHNIQUE: CT scan of the abdomen and pelvis with IV contrast. This exam was performed according to our departmental dose-optimization program, which includes automated exposure control, adjustment of the mA and/or kV according to patient size and/or use of iterative reconstruction technique. FINDINGS: The lung bases are clear. No pleural or pericardial effusions. There is no hiatal hernia. There is a 1 cm hypodensity in the hepatic dome which may represent a cyst or hemangioma. There has b een a prior cholecystectomy. Punctate splenic granulomata. The pancreas, adrenal glands, and kidneys are unremarkable. No hydronephrosis or obstructing urinary stones are seen. Query mild wall thickenin g of the urinary bladder. There is a subcentimeter hypodensity in the uterine fundus which may repres ent a fibroid. There has been a prior appendectomy. No small bowel obstruction. There is no evidence of acute divert iculitis. No intraperitoneal free fluid or free air is seen. The aorta is normal caliber. No acute osseous findings are appreciated. There is no body wall hernia. IMPRESSION: 1. Query mild inflammatory changes surrounding the urinary bladder; correlate with uri nalysis to exclude UTI. 2. No bowel obstruction or diverticulitis. Electronically signed by: Micky Cai MD 09/24/2018 10:17 PM SUPPORT SERVICES SPECIALIST Due to temporary technical issues with the PACS/Fluency reporting system, reports are being signed by the in house radiologist as a courtesy to ensure prompt reporting. The interpreting radiologist is f ully responsible for the content of the report.
== END 2018-09-24 23:43 | disposition home or self-care (01) ==
LOC: ER 18:46
DX: K64.9 Unspecified hemorrhoids (principal); Z91.02 Food additives allergy status
CPT/HCPCS: 36415; 74177; 80048; 80076; 81003; 81025; 83690; 85025; 96365; 99284; Q9967

== ENCOUNTER 2019-03-18 18:46 | Emergency (ER) | payer BC ==
--- OUTSIDE RECORDS SUMMARY | 2019-03-18 18:48 | XMS REPORT | Summary of Care ---
:1970 Author Organization [facility] - [facility] Address [address] [place] [address] Care Team Providers Name Role Phone Pcp, Patient Does Not Have A Primary Care Provider Reason for Referral Radiology Services (STAT) Status Reason Specialty Diagnoses / Referred By Referred To Procedures Contact Contact New Request Diagnostic Diagnoses Chest pain, unspecified type Richardson, Didi Radiology Procedures XR CHEST 2 VW R, EMNP 301 [facility] [id number] [place] [address] Radiology Services (STAT) Status Reason Specialty Diagnoses / Referred By Referred To Procedures Contact Contact New Request Diagnostic Diagnoses Chest pain, unspecified type Richardson, Didi Radiology Procedures XR CHEST 2 VW R, EMNP [address] [address] Reason for Visit Reason Comments Chest Pain Auth/Cert Status Reason Specialty Diagnoses / Referred By Referred To Procedures Contact Contact Emergency Medicine Diagnoses CHEST PAIN [facility] [address] [place] [address] [place] [address] Encounter Details Date Type Department Care Team Description 03/13/2019 Emergency [facility]-Emergency Richardson, Didi R, Chest pain, unspecified type (Primary Dx); Department EMNP Hypothyroidism, unspecified type; [address] [place] [address] Dr Alonzo [facility] [place], [place] [address] [id number] [place] [id number] [phone] Allergies Active Allergy Reactions Severity Noted Date Comments Chocolate Flavor Unknown - See comments 03/13/2019 documented as of this encounter (statuses as of 03/13/2019) Medications No known medicationsdocumented as of this encounter (statuses as of 03/13/2019) Active Problems No known active problemsdocumented as of this encounter (statuses as of 2018) Social History Tobacco Use Types Packs/Day Years Used Date Never Assessed Sex Assigned at Date Recorded Not on file Job Start Date Occupation Industry Not on file Not on file Not on file Travel History Travel Start Travel End No recent travel history available. documented as of this encounter Last Filed Vital Signs Vital Sign Reading Time Taken Comments Blood Pressure 106/74 03/13/2019 1:30 PM CDT Pulse 58 03/13/2019 1:30 PM CDT Temperature 36.5 C (97.7 F) 03/13/2019 10:06 AM CDT Respiratory Rate 14 03/13/2019 1:30 PM CDT Oxygen Saturation 97% 03/13/2019 1:30 PM CDT Inhaled Oxygen Concentration - - Weight 77.6 kg (171 lb) 03/13/2019 10:06 AM CDT Height 149.9 cm (4' 11") 03/13/2019 10:06 AM CDT Body Mass Index 34.54 03/13/2019 10:06 AM CDT documented in this encounter Discharge Instructions Didi Hassan EMNP - 03/13/2019NO LIFE-THREATENING FINDINGS ON TODAY'S EXAM. SPECIAL INSTRUCTIONS: 1. You will need to call Dr Edmonds or Dr Villalba and be seen within a week. Please tell them you visited the ER and had a TSH of 17. 2. You might be referred to an paid search marketing analyst 3. See attached information 4. FOLLOW-UP RECOMMENDATIONS: RECOMMEND FOLLOW-UP WITH A PRIMARY CARE PROVIDER OR SPECIALIST IN 2-5 DAYS, ESPECIALLY IF NO IMPROVEMENT IN SYMPTOMS. TO FOLLOW-UP WITHIN THE [facility], TRY THESE OPTIONS (CLINIC APPOINTMENTS AVAILABLE ON [id number] BASIS): 1. SCHEDULE AN APPOINTMENT ONLINE AT WWW.[facility] 2. OR CALL THE [facility] ACCESS CENTER AT OR 3. OR CALL YOUR [facility] PHYSICIAN'S OFFICE DIRECTLY IF YOU ARE ALREADY AN ESTABLISHED [facility] PATIENT. OR, YOU MAY FOLLOW-UP WITH A PROVIDER OF YOUR CHOICE, SUCH : 1. A PHYSICIAN OF YOUR CHOICE 2. [facility], . LOCATIONS IN [facility] 3. [facility], [address] [place], [place]; RETURN TO ER FOR WORSENING OF SYMPTOMS. AttachmentsThe following attachments cannot be sent through Care Everywhere.Chest Pain, Noncardiac (Tristanian)Hypothyroidism (Tristanian)Thyroid Problems, Common (Tristanian)Thyroid Problem, Diagnosing a (Tristanian)Thyroid Problems, Treating (Tristanian)documented in this encounter Plan of Treatment Name Type Priority Associated Diagnoses Order Schedule TRIIODOTHYRONINE LAB Routine Hypothyroidism, unspecified ONCE for 1 Occurrences type starting 03/13/2019 until 03/13/2019 FREE T4 LAB Routine Hypothyroidism, unspecified ONCE for 1 Occurrences type starting 03/13/2019 until 03/13/2019 Health Maintenance Due Date Last Done Comments DTaP,Tdap,and Td Vaccines (1 - 1989 Tdap) PAP SMEAR 10/11/1991 MAMMOGRAM 2010 INFLUENZA VACCINE (#1) 2019 PNEUMOCOCCAL 0-64 YEARS COMBINED Aged Out No longer eligible based on SERIES patient's age to complete this topic documented as of this encounter Procedures Procedure Name Priority Date/Time Associated Diagnosis Comments CBC WITH DIFFERENTIAL STAT 03/13/2019 11:19 Chest pain, Results for this AM CDT unspecified type procedure are in the results section. N-TERMINAL PRO-BNP STAT 03/13/2019 11:19 Chest pain, Results for this AM CDT unspecified type procedure are in the results section. URINALYSIS STAT 03/13/2019 11:19 Chest pain, Results for this AM CDT unspecified type procedure are in the results section. D-DIMER STAT 03/13/2019 11:19 Chest pain, Results for this AM CDT unspecified type procedure are in the results section. COMP. METABOLIC PANEL STAT 03/13/2019 11:19 Chest pain, Results for this (24777) AM CDT unspecified type procedure are in the results section. THYROID STIMULATING STAT 03/13/2019 11:19 Chest pain, Results for this HORMONE AM CDT unspecified type procedure are in the results section. TROPONIN I STAT 03/13/2019 11:19 Chest pain, Results for this AM CDT unspecified type procedure are in the results section. LIPASE STAT 03/13/2019 11:19 Chest pain, Results for this AM CDT unspecified type procedure are in the results section. XR CHEST 2 VW STAT 03/13/2019 10:48 Chest pain, Results for this AM CDT unspecified type procedure are in the results section. EKG-12 LEAD STAT 03/13/2019 10:15 AM CDT documented in this encounter Results URINALYSIS (03/13/2019 11:19 AM CDT) APPEARANCE Clear Clear [facility] COLOR Yellow Yellow [facility] PH 6.0 4.8 - 8.0 [facility] SP GRAVITY 1.020 1.003 - 1.030 [facility] GLU U QUAL Negative Negative [facility] BLOOD Small (A) Negative [facility] KETONES Negative Negative [facility] PROTEIN Negative Negative [facility] UROBILIN 0.2 mg/dL 0-1.0 mg/dL [facility] BILIRUBIN Negative Negative [facility] NITRITE Negative Negative [facility] LEUK CHRISTIANO Negative Negative [facility] RBC/HPF 4 (H) 0 - 3 HPF [facility] WBC/HPF 1 0 - 5 HPF [facility] BACTERIA Few (A)Comment: Negative [facility] This is a corrected HOSPITAL LABORATORY result. Previous result was Many on 03/13/2019 at 1143 CDT SQ EPITH 4 HPF [facility] Specimen Urine - URINE, CLEAN CATCH Performing Organization Address City/State/Zipcode Phone Number [facility] CLIA: [id number], [address] [place] [address] TROPONIN I (03/13/2019 11:19 AM CDT) TROPONIN I <0.012 <=0.034 ng/mL [facility] Specimen Blood - ARM, LEFT Narrative Performed At Equal or Less than 0.034 ng/ml---Normal [facility] Note: Cardiac troponin begins to rise 3-4 hours after the onset of ischemia. Repeat in 4-6 hours if the sample was drawn within 3-4 hours of the onset of the symptom and found normal. Between 0.035 and 0.120 ng/mL--- Borderline. Questionable myocardial injury or necrosis Note: Serial measurement may be necessary to confirm or exclude the diagnosis of myocardial injury or necrosis; Clinical correlation (symptoms, EKGs, imaging studies, and others) required; Repeat in 4-6 hours if clinically indicated. Equal or Higher than 0.121 ng/mL---Abnormal. Myocardial Injury or Necrosis Likely Biotin has been reported to cause a negative bias, interpret results relative to patient's use of biotin. Performing Organization Address [facility] Phone Number [facility] CLIA: [id number], [address] [place] [address] THYROID STIMULATING HORMONE (03/13/2019 11:19 AM CDT) TSH 17.50 (H) 0.45 - 4.70 mIU/L [facility] Specimen Blood - ARM, LEFT Performing Organization Address [facility] Number [facility] CLIA: [id number], [address] [place] [address] N-TERMINAL PRO-BNP (03/13/2019 11:19 AM CDT) NT-proBNP 112 <=125 pg/mL [facility] Specimen Blood - ARM, LEFT Narrative Performed At Biotin has been reported to cause a negative [facility] bias, interpret results relative to patient's use of biotin. Performing Organization Address [facility] Phone Number [facility] CLIA: [id number], [address] [place], [place] [address] [address] LIPASE (03/13/2019 11:19 AM CDT) LIPASE 105 0 - 220 U/L [facility] Specimen Blood - ARM, LEFT Performing Organization Address [facility] Phone Number [facility] CLIA: [id number], [address] [place] [address] D-DIMER (03/13/2019 11:19 AM CDT) D-DIMER <0.27 <0.41 g/mL (FEU) [facility] Specimen Blood - ARM, LEFT Narrative Performed At This test may be used in conjunction with a [facility] clinical pretest probability (PTP) assessment model to exclude pulmonary embolism (PE) and as an aid in the diagnosis of deep venous thrombosis (DVT) in outpatients suspected of PE or DVT. A D-Dimer value less than 0.50 g/ml (FEU) has a negative predicative value of 98 to 100% (95% CI) for the exclusion of pulmonary embolism (PE) and 95 to 100% (95% CI) as an aid in the diagnosis of deep vein thrombosis (DVT) when there is low or moderate pretest probability of PE or DVT. D-Dimer values are expressed in initial fibrinogen equivalent units (FEU). Performing Organization Address City/State/Zipcode Phone Number [facility] CLIA: [id number], [address] [place] [address] COMP. METABOLIC PANEL (09004) (03/13/2019 11:19 AM CDT) NA 140 135 - 145 [facility] mmol/L [facility] K 3.6 3.5 - 5.0 [facility] mmol/L [facility] CL 104 98 - 108 mmol/L [facility] CO2 TOTAL 24 23 - 31 mmol/L [facility] AGAP 12 2 - 16 [facility] BUN 16 7 - 23 mg/dL [facility] GLUCOSE 122 (H) 70 - 110 mg/dL [facility] CREATININE 0.76 0.50 - 1.04 [facility] mg/dL [facility] TOTAL BILI 0.4 0.1 - 1.1 mg/dL [facility] CALCIUM 9.0 8.6 - 10.6 [facility] mg/dL [facility] T PROTEIN 7.9 6.3 - 8.2 g/dL [facility] ALBUMIN 4.3 3.5 - 5.0 g/dL [facility] ALK PHOS 89 34 - 122 U/L [facility] ALT(SGPT) 16 9 - 51 U/L [facility] AST(SGOT) 30 13 - 40 U/L [facility] eGFR Calculation 81.2 mL/min/1.73m2 [facility] ([facility] LABORATORY [place]) eGFR Calculation 98.4 mL/min/1.73m2 [facility] LABORATORY Specimen Blood - ARM, LEFT Narrative Performed At Association of Glomerular Filtration Rate (GFR) [facility] and Staging of Kidney Disease* + + +- + | GFR (mL/min/1.73 m2)| With Kidney Damage|Without Kidney Damage + + +- + |>90| Stage one| Normal + + +- + |60-89|S tage two| Decreased GFR + + +- + |30-59|S tage three| Stage three + + +- + |15-29|S tage four | Stage four + + +- + |<15 (or dialysis)|Stage five | Stage five + + +- + *Each stage assumes the associated GFR level has been in effect for at least three months.Stages 1 to 5, with or without kidney disease, indicate chronic kidney disease. Notes: Determination of stages one and two (with eGFR >59mL/min/1.73 m2) requires estimation of kidney damage for at least three months as defined by structural or functional abnormalities of the kidney, manifested by either: Pathological abnormalities or Markers of kidney damage (including abnormalities in the composition of the blood or urine or abnormalities in imaging tests). Performing Organization Address City/State/Zipcode Phone Number [facility] CLIA: [id number], [address] [place] [address] CBC WITH DIFFERENTIAL (03/13/2019 11:19 AM CDT) WBC 6.54 4.30 - 11.10 [facility] 10*3/L [facility] RBC 4.57 3.93 - 5.25 [facility] 10*6/L [facility] HGB 13.3 11.6 - 15.0 g/dL [facility] HCT 39.4 35.7 - 45.2 % [facility] MCV 86.2 80.6 - 95.5 fL [facility] MCH 29.1 25.9 - 32.8 pg [facility] MCHC 33.8 31.6 - 35.1 g/dL [facility] RDW-SD 48.2 39.0 - 49.9 fL [facility] RDW-CV 15.5 12.0 - 15.5 % [facility] PLT 223 166 - 358 [facility] 10*3/L [facility] MPV 9.3 (L) 9.5 - 12.9 fL [facility] NRBC/100 WBC 0.0 0.0 - 10.0 /100 [facility] WBCs [facility] NRBC x10^3 <0.01 10*3/L [facility] GRAN MAT (NEUT) % 54.6 % [facility] IMM GRAN % 0.30 % [facility] LYMPH % 29.7 % [facility] MONO % 13.0 % [facility] EOS % 1.8 % [facility] BASO % 0.6 % [facility] GRAN MAT x10^3(ANC) 3.57 1.88 - 7.09 [facility] 10*3/uL [facility] IMM GRAN x10^3 <0.03 0.00 - 0.06 [facility] 10*3/uL [facility] LYMPH x10^3 1.94 1.32 - 3.29 [facility] 10*3/uL [facility] MONO x10^3 0.85 0.33 - 0.92 [facility] 10*3/uL [facility] EOS x10^3 0.12 0.03 - 0.39 [facility] 10*3/uL [facility] BASO x10^3 0.04 0.01 - 0.07 [address]/[facility] LABORATORY Specimen Blood - ARM, LEFT Performing Organization Address City/[facility]/Zipcode Phone Number [facility] CLIA: [id number], [address] [place] [address] XR CHEST 2 VW (03/13/2019 10:48 AM CDT) Specimen Narrative Performed At * * * * * * * * ORIGINAL REPORT * * * * * * * * PACS/VR/DOSE EXAM: XR CHEST 2 VW HISTORY: chest pain COMPARISON: None. FINDINGS: The heart and great vessels are normal and the lungs are well expanded and clear. Procedure Note [facility], Radiant Results Inft User - 03/13/2019 10:53 AM CDT * * * * * * * * ORIGINAL REPORT * * * * * * * * EXAM: XR CHEST 2 VW HISTORY: chest pain COMPARISON: None. FINDINGS: The heart and great vessels are normal and the lungs are well expanded and clear. Performing Organization Address City/State/Zipcode Phone Number PACS/VR/DOSE documented in this encounter Visit Diagnoses Diagnosis Chest pain, unspecified type - Primary Hypothyroidism, unspecified type Fatigue, unspecified type documented in this encounter Administered Medications Medication Order MAR Action Action Date Dose Rate Site aspirin E.C. (ECOTRIN) tablet 325 Given 03/13/2019 12:16 PM CDT 325 mg mg 325 mg, Oral, ONCE, 1 dose, Wed03/13/19 at 1315, STAT FENTanyl PF (SUBLIMAZE (PF)) injection 50 Given 03/13/2019 12:16 PM CDT 50 mcg mcg 50 mcg, Slow IV Push, ONCE, 1 dose, Wed03/13/19 at 1315, Routine ondansetron (ZOFRAN (PF)) injection 4 mg Given 03/13/2019 12:17 PM CDT 4 mg 4 mg, Slow IV Push, ONCE, 1 dose, Wed03/13/19 at 1315, HUMA documented in this encounter Insurance Payer Benefit Plan Subscriber ID Effective Dates Phone Address Type / Group [facility] [id number] 2019-Caridad [phone] [address] PPO/POS [place] [id number] [place] [address] documented as of this encounter
--- OUTSIDE RECORDS SUMMARY | 2019-03-18 18:48 | XMS REPORT ---
:1970 Author [facility] Address [address] [place] [address] [place] [address] Care Team Providers Name Role Phone Unavailable Unavailable Unavailable Problems This patient has no known problems. Allergies, Adverse Reactions, Alerts This patient has no known allergies or adverse reactions. Medications This patient has no known medications.
[2019-03-18] MEDS ORDERED: CLINDAMYCIN HCL 150 MG CAP ONE (20:13)
--- NOTE | 2019-03-18 20:13 | EDPHYS ---
Physician Documentation [facility] Name: Mary Carmen Dodd Age: 48 yrs Sex: Female : 1970 Arrival Date: 03/18/2019 Time: 18:49 Bed Waiting Private MD: Hal Edmonds ED Physician Michel Rajput HPI: 03/19 01:39 This 48 yrs old Female presents to ER via Ambulatory with complaints of tw4 Insect Bite. 01:39 The patient presents with cellulitis of the palmar aspect of right forearm. tw4 Description: The affected area is moderate sized. Onset: The symptoms/episode began/occurred today. Possible cause(s): unknown. Associated signs and symptoms: The patient has no apparent associated signs or symptoms. Modifying factors: the symptoms are alleviated by nothing, the symptoms are aggravated by nothing. The patient has not experienced similar symptoms in the past. SUBACUTE NURSE: 03/18 19:25 LMP 07/2018 jd3 Historical: - Allergies: 19:25 Chocolate; jd3 - Home Meds: 19:25 levothyroxine 100 mcg tab 1 tab once daily [Active]; dicyclomine 20 mg Oral tab 1 tab 3 jd3 times per day [Active]; - PMHx: 19:25 Migraines; Thyroid problem; jd3 - PSHx: 19:25 ; Cholecystectomy; Appendectomy; jd3 - Immunization history:: Adult Immunizations up to date. - Social history:: Smoking status: Patient/guardian denies using tobacco. - Ebola Screening: : Patient negative for fever greater than or equal to 101.5 degrees Fahrenheit, and additional compatible Ebola Virus Disease symptoms. ROS: 03/19 01:39 Constitutional: Negative for fever, chills, and weight loss, Cardiovascular: Negative tw4 for chest pain, palpitations, and edema, Respiratory: Negative for shortness of breath, cough, wheezing, and pleuritic chest pain, Abdomen/GI: Negative for abdominal pain, nausea, vomiting, diarrhea, and constipation, Back: Negative for injury and pain, MS/Extremity: Negative for injury and deformity. Skin: Positive for erythema. Exam: 01:39 Constitutional: This is a well developed, well nourished patient who is awake, alert, tw4 and in no acute distress. Head/Face: Normocephalic, atraumatic. Chest/axilla: Normal chest wall appearance and motion. Nontender with no deformity. No lesions are appreciated. Cardiovascular: Regular rate and rhythm with a normal S1 and S2. No gallops, murmurs, or rubs. Normal PMI, no JVD. No pulse deficits. Respiratory: Lungs have equal breath sounds bilaterally, clear to auscultation and percussion. No rales, rhonchi or wheezes noted. No increased work of breathing, no retractions or nasal flaring. Abdomen/GI: Soft, non-tender, with normal bowel sounds. No distension or tympany. No guarding or rebound. No evidence of tenderness throughout. 01:39 Musculoskeletal/extremity: Extremities: noted in the palmar aspect of right forearm: Vital Signs: 03/18 19:25 BP 106 / 80; Pulse 79; Resp 16 S; Temp 98.6(O); Pulse Ox 98% on R/A; Weight 86.64 kg jd3 (R); Height 5 ft. 0 in. (152.40 cm) (R); Pain 2/10; 19:25 Body Mass Index 37.30 (86.64 kg, 152.40 cm) jd3 MDM: 20:10 Patient medically screened. tw4 03/19 01:39 Differential diagnosis: cellulitis. Data reviewed: vital signs, nurses notes. Data tw4 interpreted: Pulse oximetry: Interpretation: normal. Test interpretation: by ED physician or midlevel provider: not applicable. Counseling: I had a detailed discussion with the patient and/or guardian regarding: the historical points, exam findings, and any diagnostic results supporting the discharge/admit diagnosis. Special discussion: I discussed with the patient/guardian in detail that at this point there is no indication for admission to the hospital. It is understood, however, that if the symptoms persist or worsen the patient needs to return immediately for re-evaluation. Administered Medications: 03/18 20:16 Drug: Cleocin 300 mg Route: PO; jd3 20:16 Follow up: Response: Medication administered at discharge. jd3 Disposition: 03/18/19 20:10 Discharged to Home. Impression: Cellulitis of right upper limb. - Condition is Stable. - Discharge Instructions: Cellulitis, Adult. - Prescriptions for Cleocin 300 mg Oral Capsule - take 1 capsule by ORAL route every 6 hours for 10 days; 40 capsule. - Medication Reconciliation Form, Thank You Letter, Antibiotic Education, Prescription Opioid Use form. - Follow up: Hal Edmonds MD; When: Upon discharge from the Emergency Department; Reason: If symptoms return, Recheck today's complaints, Continuance of care. - Problem is new. - Symptoms have improved. Signatures: Hipolito Gillespie RN RN jd3 Michel Rajput MD MD tw4 Corrections: (The following items were deleted from the chart) 20:16 20:10 03/18/2019 20:10 Discharged to Home. Impression: Cellulitis of right upper limb. jd3 Condition is Stable. Forms are Medication Reconciliation Form, Thank You Letter, Antibiotic Education, Prescription Opioid Use. Follow up: Hal Edmonds; When: Upon discharge from the Emergency Department; Reason: If symptoms return, Recheck today's complaints, Continuance of care. Problem is new. Symptoms have improved. tw4
--- NOTE | 2019-03-18 20:13 | ER ---
Nurse's Notes [facility] Name: Mary Carmen Dodd Age: 48 yrs Sex: Female : 1970 Arrival Date: 03/18/2019 Time: 18:49 Bed Waiting Private MD: Hal Edmonds Diagnosis: Cellulitis of right upper limb Presentation: 03/18 19:20 Presenting complaint: Patient states: "I noticed the bite yesterday morning on my right jd3 arm. it had the same black dot in the middle, but the redness was a lot less. it was probably about the size of a sunil yesterday.". Transition of care: patient was not received from another setting of care. Onset of symptoms was March 17, 2019. Risk Assessment: Do you want to hurt yourself or someone else? Patient reports no desire to harm self or others. Initial Sepsis Screen: Does the patient meet any 2 criteria? No. Patient's initial sepsis screen is negative. Does the patient have a suspected source of infection? No. Patient's initial sepsis screen is negative. Care prior to arrival: None. 19:20 Method Of Arrival: Ambulatory jd3 19:20 Acuity: DANIEL 4 jd3 Triage Assessment: 20:10 Bite description: bite sustained to palmar aspect of right forearm by an unknown jd3 animal, animal information: vaccination(s) is not applicable. 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 - Social history:: Smoking status: Patient/guardian denies using tobacco. - Ebola Screening: : Patient negative for fever greater than or equal to 101.5 degrees Fahrenheit, and additional compatible Ebola Virus Disease symptoms. Screenin:10 Abuse screen: Denies threats or abuse. Nutritional screening: No deficits noted. jd3 Tuberculosis screening: No symptoms or risk factors identified. Fall Risk None identified. Assessment: 20:07 Reassessment: Dr. Rajput assessing pt in triage room. General: Appears in no apparent jd3 distress. uncomfortable, Behavior is calm, cooperative, appropriate for age. Pain: Denies pain. Neuro: Level of Consciousness is awake, alert, obeys commands, Oriented to person, place, time, situation. Cardiovascular: Capillary refill < 3 seconds Patient's skin is warm and dry. Respiratory: Airway is patent Respiratory effort is even, unlabored, Respiratory pattern is regular, symmetrical, Denies cough, shortness of breath. GI: No signs and/or symptoms were reported involving the gastrointestinal system. : No signs and/or symptoms were reported regarding the genitourinary system. EENT: No signs and/or symptoms were reported regarding the EENT system. Derm: Skin is intact, Skin is dry, Skin is normal, Skin temperature is warm two puncture wounds noted to right forearm appearing to be an insect bite. redness around bite about the size of a silver dollar. Musculoskeletal: No signs and/or symptoms reported regarding the musculoskeletal system. Vital Signs: 19:25 BP 106 / 80; Pulse 79; Resp 16 S; Temp 98.6(O); Pulse Ox 98% on R/A; Weight 86.64 kg jd3 (R); Height 5 ft. 0 in. (152.40 cm) (R); Pain 2/10; 19:25 Body Mass Index 37.30 (86.64 kg, 152.40 cm) jd3 ED Course: 18:49 Patient arrived in ED. es 18:49 Hal Edmonds MD is Private Physician. es 19:23 Triage completed. jd3 19:26 Arm band placed on. jd3 20:03 Michel Rajput MD is Attending Physician. tw4 20:09 Hal Edmonds MD is Referral Physician. tw4 20:10 Patient has correct armband on for positive identification. Adult w/ patient. jd3 20:10 No provider procedures requiring assistance completed. Patient did not have IV access jd3 during this emergency room visit. Administered Medications: 20:16 Drug: Cleocin 300 mg Route: PO; jd3 20:16 Follow up: Response: Medication administered at discharge. jd3 Outcome: 20:10 Discharge ordered by . tw4 20:16 Discharged to home ambulatory, with family. jd3 20:16 Condition: stable 20:16 Discharge instructions given to patient, family, Instructed on discharge instructions, follow up and referral plans. medication usage, Demonstrated understanding of instructions, follow-up care, medications, Prescriptions given X 1. 20:16 Patient left the ED. jd3 Signatures: Elisabet Ni Jonathon RN RN jd3 Michel Rajput MD MD tw4
[2019-03-18 21:55] VITALS: BP 106/80; TEMP 98.6; O2SAT 98
== END 2019-03-18 20:16 | disposition home or self-care (01) ==
LOC: ER 18:46
DX: L03.113 Cellulitis of right upper limb (principal); E07.9 Disorder of thyroid, unspecified; Z91.018 Allergy to other foods
CPT/HCPCS: 99283